=== PATIENT | female | born 2000 | race Two or more races ===

== ENCOUNTER 2022-11-20 00:34 | Inpatient (IN) | payer OTHER ==
[~2022-11-20] VITALS: Ht 152.4 cm; Wt 77.2 kg
[2022-11-20 01:25] LABS: Basophils # (auto) 0 10 ^3/uL (0-0.2); Basophils % (auto) 0.4 % (0.0-2.0); Eosinophils # (auto) 0 10 ^3/uL (0-0.8)
[2022-11-20 01:27] LABS: Eosinophils % (auto) 0.2 % (0.0-7.0); Hematocrit 40.8 % (36.0-46.0); Hemoglobin 13.7 g/dL (12.2-16.2); Lymphocytes # (auto) 1.7 10 ^3/uL (0.4-5.4); Lymphocytes % (auto) 16.5 % (10.0-50.0); Mean Corpuscular Hemoglobin 27.7 pg (28.0-32.0); Mean Corpuscular Hgb Conc. 33.6 g/dL (32.0-36.0); Mean Corpuscular Volume 82.6 fL (80.0-100.0); Monocytes # (auto) 0.5 10 ^3/uL (0-1.3); Monocytes % (auto) 5.4 % (0.0-12.0); Neutrophils # (auto) 7.8 10 ^3/uL (1.6-8.6); Neutrophils % (auto) 77.5 % (37.0-80.0); Red Blood Cells 4.94 10^6/uL (4.0-5.20); Red Cell Distribution Width 15.1 % (11.8-14.3); White Blood Cell 10.1 10^3/uL (4.4-10.8)
[2022-11-20 01:43] VITALS: PULSE 132; RESP 19; O2SAT 96
[2022-11-20 01:44] LABS: Alanine Aminotransferase 69 U/L (7-40); Albumin 5.3 g/dL (3.2-4.8); Alkaline Phosphatase 117 U/L (46-116); Anion Gap 14.9 (5-15); Aspartate Aminotransferase 28 U/L (13-40); BUN/Creatinine Ratio 18.1 (10.0-20.0); Bilirubin, Total 0.5 mg/dL (0.2-1.0); Blood Urea Nitrogen 15 mg/dL (9-23); Calcium 9.9 mg/dL (8.7-10.4); Carbon Dioxide 17.1 mmol/L (20-30); Chloride 105 mmol/L (98-107); Glucose 77 mg/dL (74-106); Potassium 3.9 mmol/L (3.5-5.1); Sodium 137 mmol/L (136-145); Total Protein 9.2 g/dL (5.7-8.2)
[2022-11-20] MEDS ORDERED: ONDANSETRON HCL 4 MG/2 ML VIAL IV ONE ×2 (02:00→08:15)
[2022-11-20] MEDS ORDERED: ACETAMINOPHEN 500 MG TAB PO ONE (02:00)
[2022-11-20] MEDS ORDERED: SODIUM CHLORIDE 0.9% 1,000 ML IV ONE (02:15)
[2022-11-20 04:13] LABS: Urine Bacteria NONE SEEN /hpf (None Seen); Urine Blood 1+ /uL (Negative); Urine Clarity HAZY (Clear); Urine Color Yellow (Yellow); Urine Mucus FEW (None Seen); Urine Protein, UAD 1+ (Negative); Urine Specific Gravity 1.029 (1.001-1.035); Urine Urobilinogen Normal (Negative); Urine WBC 28 /hpf (0 - 5); Urine pH 5.5 (5.0-8.0)
[2022-11-20] MEDS ORDERED: MORPHINE SULFATE INJ 2 MG/ml SYRG IV ONE (08:15)
[2022-11-20 08:18] VITALS: PULSE 82; RESP 20; O2SAT 96
[2022-11-20] MEDS ORDERED: diphenhdrAMINE HCL 50 MG/1 ML VL IV ONE (09:30)
[2022-11-20] MEDS ORDERED: DOCUSATE SOD 100 MG CAP PO PRN (09:45)
[2022-11-20] MEDS ORDERED: ONDANSETRON HCL 4 MG/2 ML VIAL IV PRN (09:45)
[2022-11-20 09:52] LABS: INR 1.09 (0.9-1.15); Partial Thromboplastin Time 33.1 SEC (24.5-34.5); Prothrombin Time 11.4 sec (9.3-11.8)
[2022-11-20] MEDS ORDERED: HYDROmorphone HCL 2 MG/ML VL/or syr IV PRN (10:00)
[2022-11-20] MEDS: ASPirin 81 mg TAB PO SCH (10:12)
[2022-11-20] MEDS: SODIUM CHLORIDE 0.9% 1,000 ML IV SCH ×2 (10:12→18:05)
[2022-11-20] MEDS: METOPROLOL TARTRATE 25 MG TAB PO SCH ×2 (10:12→22:00)
[2022-11-20 10:26] LABS: Phosphorus 3.3 mg/dL (2.4-5.1)
[2022-11-20 20:18] VITALS: PULSE 89; RESP 14; O2SAT 97
[2022-11-20] MEDS: MECLIZINE HCL 25 MG TAB PO PRN (23:30)
[2022-11-21] MEDS: SODIUM CHLORIDE 0.9% 1,000 ML IV SCH ×4 (03:22→21:29)
[2022-11-21 07:06] LABS: Free Thyroxine Index 2.9 (1.2-4.9); Thyroxine (T4) 10.3 ug/dL (4.5-12.0)
[2022-11-21 07:32] LABS: Basophils # (auto) 0 10 ^3/uL (0-0.2); Basophils % (auto) 0.7 % (0.0-2.0); Eosinophils # (auto) 0.4 10 ^3/uL (0-0.8); Eosinophils % (auto) 5.9 % (0.0-7.0); Hematocrit 33.7 % (36.0-46.0); Hemoglobin 11.3 g/dL (12.2-16.2); Lymphocytes # (auto) 1.9 10 ^3/uL (0.4-5.4); Lymphocytes % (auto) 29.5 % (10.0-50.0); Mean Corpuscular Hemoglobin 27.8 pg (28.0-32.0); Mean Corpuscular Hgb Conc. 33.4 g/dL (32.0-36.0); Mean Corpuscular Volume 83.3 fL (80.0-100.0); Monocytes # (auto) 0.5 10 ^3/uL (0-1.3); Monocytes % (auto) 8.4 % (0.0-12.0); Neutrophils # (auto) 3.6 10 ^3/uL (1.6-8.6); Neutrophils % (auto) 55.5 % (37.0-80.0); Nucleated Red Blood Cells % 0.3 %; Red Blood Cells 4.05 10^6/uL (4.0-5.20); Red Cell Distribution Width 15.3 % (11.8-14.3); White Blood Cell 6.5 10^3/uL (4.4-10.8)
[2022-11-21 07:40] VITALS: RESP 15; O2SAT 97
[2022-11-21 08:05] LABS: Alanine Aminotransferase 42 U/L (7-40); Albumin 4.1 g/dL (3.2-4.8); Alkaline Phosphatase 89 U/L (46-116); Anion Gap 7.9 (5-15); Aspartate Aminotransferase 16 U/L (13-40); BUN/Creatinine Ratio 9.8 (10.0-20.0); Blood Urea Nitrogen 8 mg/dL (9-23); Calcium 8.7 mg/dL (8.5-10.1); Carbon Dioxide 23.1 mmol/L (20-30); Chloride 107 mmol/L (98-107); Glucose 91 mg/dL (74-106); Sodium 138 mmol/L (136-145)
[2022-11-21 08:06] LABS: Bilirubin, Total 0.3 mg/dL (0.2-1.0); Total Protein 7.1 g/dL (5.7-8.2)
[2022-11-21] MEDS: METOPROLOL TARTRATE 25 MG TAB PO SCH ×2 (09:30→21:19)
[2022-11-21] MEDS: MECLIZINE HCL 25 MG TAB PO PRN (09:34)
[2022-11-21] MEDS: ASPirin 81 mg TAB PO SCH (09:36)
[2022-11-21] MEDS ORDERED: cefTRIAXone 1GM/50ML D5W 50 ML IV ONE (12:45)
[2022-11-21 17:30] VITALS: BP 102/77; PULSE 75; RESP 16; TEMP 97.8; O2SAT 99
[2022-11-21 19:00] VITALS: BP 102/77; PULSE 75; RESP 16; TEMP 97.8
[2022-11-21 19:14] VITALS: PULSE 107; RESP 18; O2SAT 100
[2022-11-21] MEDS ORDERED: METO25TA5 PO (19:34)
[2022-11-21 20:00] VITALS: BP 105/66; PULSE 77; PULSE 81; RESP 16; TEMP 98; O2SAT 96
[2022-11-21 22:00] VITALS: BP_SYST 105; BP_SYST 110; BP_SYST 113; BP_DIAS 66; BP_DIAS 71; PULSE 100; PULSE 81; PULSE 87; RESP 16; TEMP 98; O2SAT 96
[2022-11-22 05:00] VITALS: BP_SYST 107; BP_SYST 110; BP_SYST 113; BP_DIAS 62; BP_DIAS 70; BP_DIAS 71; PULSE 84; PULSE 93; PULSE 98; RESP 70; TEMP 98; O2SAT 98
[2022-11-22] MEDS: SODIUM CHLORIDE 0.9% 1,000 ML IV SCH (05:53)
[2022-11-22] MEDS: MECLIZINE HCL 25 MG TAB PO PRN (06:07)
[2022-11-22 07:54] VITALS: PULSE 63
[2022-11-22 08:09] VITALS: BP 90/56; PULSE 72; RESP 17; TEMP 98.2; O2SAT 98
[2022-11-22 08:50] VITALS: BP 90/56; PULSE 72; RESP 17; TEMP 98.2; O2SAT 98
[2022-11-22] MEDS ORDERED: cefTRIAXone 1GM/50ML D5W 50 ML IV SCH (09:00)
[2022-11-22] MEDS: METOPROLOL TARTRATE 25 MG TAB PO SCH (10:23)
[2022-11-22] MEDS: ASPirin 81 mg TAB PO SCH (10:23)
[2022-11-22] MEDS ORDERED: METO25TA93 PO (11:43)
[2022-11-22] MEDS ORDERED: CIPR-173 PO (11:43)
[2022-11-22] MEDS ORDERED: MECL25CH85 PO (11:43)
[2022-11-22 12:28] VITALS: BP 97/54; PULSE 69; RESP 16; TEMP 98.7; O2SAT 100
[2022-11-22 12:54] VITALS: BP 97/54; PULSE 69; RESP 16; TEMP 98.7; O2SAT 100
== END 2022-11-22 17:22 | disposition home or self-care (01) | DRG 92 ==
LOC: EDBD 00:34 → ER 00:34 → TELE 09:44 → TELE-WESTW 11-21 17:21
PROVIDERS: ADMIT Nurse Practitioner Family; ATTEND Family Medicine
DX: G90.A Postural orthostatic tachycardia syndrome [POTS] (principal); N39.0 Urinary tract infection, site not specified; D75.839 Thrombocytosis, unspecified; E86.0 Dehydration; R82.4 Acetonuria; F41.9 Anxiety disorder, unspecified; F12.10 Cannabis abuse, uncomplicated; E66.9 Obesity, unspecified; Z68.33 Body mass index [BMI] 33.0-33.9, adult
CPT/HCPCS: 36415; 70450; 71045; 80053; 81001; 81025; 82607; 82962; 83735; 84100; 84443; 84484; 84702; 85025; 85610; 85730; 93306; 96361; 96374; G0378; J0696; J2405

== ENCOUNTER → 2024-03-06 | Outpatient (CLI) | payer BC ==
[~2024-03-06] MED LIST: CIPR-173 PO; MECL25CH85 PO; METO25TA5 PO; METO25TA93 PO
[2024-03-06 13:23] LABS: Urine Bacteria None Seen /hpf (None Seen)
[2024-03-06 13:28] LABS: Basophils # (auto) 0.1 10 ^3/uL (0-0.2); Eosinophils # (auto) 0 10 ^3/uL (0-0.8); Monocytes # (auto) 0.3 10 ^3/uL (0-1.3); Neutrophils # (auto) 2.6 10 ^3/uL (1.6-8.6)
[2024-03-06 13:30] LABS: Basophils % (auto) 1.9 % (0.0-2.0); Eosinophils % (auto) 0.7 % (0.0-7.0); Hematocrit 38.8 % (36.0-46.0); Lymphocytes # (auto) 1.2 10 ^3/uL (0.4-5.4); Lymphocytes % (auto) 28.4 % (10.0-50.0); Mean Corpuscular Hemoglobin 26.7 pg (28.0-32.0); Mean Corpuscular Hgb Conc. 33.6 g/dL (32.0-36.0); Mean Corpuscular Volume 79.3 fL (80.0-100.0); Monocytes % (auto) 7.6 % (0.0-12.0); Neutrophils % (auto) 61.4 % (37.0-80.0); Platelet Count (auto) 326 10^3/uL (140-450); Red Blood Cells 4.89 10^6/uL (4.0-5.20); Red Cell Distribution Width 16.7 % (11.8-14.3); White Blood Cell 4.2 10^3/uL (4.4-10.8)
[2024-03-06 13:53] LABS: Urine Blood TRACE /uL (Negative); Urine Clarity Clear (Clear); Urine Color Colorless (Yellow); Urine Protein, UAD Negative (Negative); Urine Specific Gravity 1.009 (1.001-1.035); Urine Urobilinogen Normal (Negative); Urine WBC 2 /hpf (0 - 5); Urine pH 5.5 (5.0-9.0)
[2024-03-06 14:04] LABS: Alkaline Phosphatase 66 U/L (46-116); Amylase 50 U/L (30-118); Anion Gap 12 (5-15); Aspartate Aminotransferase 32 U/L (13-40); Bilirubin, Total 0.5 mg/dL (0.2-1.0); Calcium 10.1 mg/dL (8.7-10.4); Carbon Dioxide 24 mmol/L (20-31); Chloride 103 mmol/L (98-107); Glucose 86 mg/dL (74-106); Lipase 25 U/L (12-53); Sodium 139 mmol/L (136-145); Total Protein 7.9 g/dL (5.7-8.2)
[2024-03-06 14:19] LABS: Alanine Aminotransferase 46 U/L (7-40); Albumin 4.9 g/dL (3.2-4.8); BUN/Creatinine Ratio 7.9 (10.0-20.0); Blood Urea Nitrogen < 5 mg/dL (9-23); Potassium 3.2 mmol/L (3.5-5.1)
== END | disposition home or self-care (01) ==
LOC: LAB 12:54
PROVIDERS: ATTEND Nurse Practitioner Family
DX: Z00.01 Encounter for general adult medical examination with abnormal findings (principal); R11.2 Nausea with vomiting, unspecified; G90.A Postural orthostatic tachycardia syndrome [POTS]
CPT/HCPCS: 36415; 80053; 81001; 82150; 83690; 84443; 85025

== ENCOUNTER 2024-03-31 11:33 | Emergency (ER) | payer BC, MEDICAID ==
[~2024-03-31] VITALS: Ht 152.4 cm; Wt 55.2 kg
--- NOTE | 2024-03-31 12:21 | ED.PDOC ---
HPI Comments HPI: Poor Historian. 23-year-old female with a history of POTS syndrome in 2020 currently on promethazine presents to emergency department for worsening of her symptoms in the last few months. She describes having worsening tachycardia and dizziness. Her heart rate goes up to 170 with minimal exertion. She feels very weak and dizzy and requires assistance to ambulate. She smokes marijuana occasionally. Denies any or vaginal bleeding or any other use of drugs. Patient in triage mentioned that she is here for abdominal pain but when further evaluated she states that she feels that when her heart is beating fast and strong that she feels that pulse in her abdomen and that is what she is describing as abdominal complaint but no actual pain. VITALS: T:98.0 HR:160 RR:18 O2:99 BP:142/103 SOCIAL HX: DENIES TOBACCO USAGE, ETOH CONSUMPTION, SMOKES MARIJUANA SHX: DENIES ALL PMHX: DENIES ALL ALLERGIES: NKA RX: PROMETHAZOE REVIEW OF SYSTEMS: CONSTITUTIONAL: Denies acute: fever, diaphoresis, chills, HEAD: Denies acute: headache, photophobia Eyes: Denies acute: Double vision, vision loss, eye pain, eye discharge. EARS: Denies acute: tinnitus, hearing loss, ear discharge, ear pain, THROAT: Denies acute: sore throat, swelling, difficulty swallowing , pain with swallowing, change in voice. NECK: Denies acute: neck pain, neck swelling, stiff neck. HEART: Denies acute : chest pain, LUNGS: Denies acute: SOB, wheezing, cough, hemoptysis ABDOMEN: Denies acute: abdominal pain, Nausea, Vomiting, diarrhea, melena , hematemesis, hematochezia SKIN: Denies acute: rash, redness, lesions, itchiness. EXTREMITIES: Denies acute: calf pain, numbness, tingling, weakness, denies pain in extremity. Denies acute: Low back pain. Neuro: Denies acute: focal neurological deficit, motor or sensory focal neurological deficit, tremors, seizure like activity, confusion, change in mental status, loss of bowel or bladder function, cauda equina like symptoms. : Denies acute: dysuria, hematuria, flank pain, increase in urinary frequency. PSYCH: Denies acute: hallucination, suicidal ideation, homicidal ideation. FEMALE: Denies acute: abnormal vaginal bleeding, foul odor, unusual discharge. PHYSICAL EXAM: General: no acute distress, awake and alert. Head: normocephalic, atraumatic. Neck: supple, trachea is midline, no swelling. Throat: Normal phonation. Eyes:, no erythema, no purulent discharge, no proptosis, no icterus. Heart: regular tachycardic, no significant murmur appreciated. Lungs: no apparent respiratory distress, Able to speak in full sentences. No wheezing, no rhonchi, no crackles. No stridors Clear to auscultation bilaterally. Abdomen: non tender to palpation, non distended, soft, no guarding, no rebound, + bowel sounds. Neuro: Awake, Alert, oriented to name, self, situation, follows commands GCS=15. Speech is normal. Skin: no petechia, no purpura, no cyanosis, slightly-pale, not jaundice. Lower extremities: --no - Pitting edema no deformity, no focal swelling, no calf TTP. Makes eye contact. moves all four extremities. Face: no apparent facial droop. Ambulating in the ED with a cane. No nuchal rigidity, Kernig's sign, Brudzinski's sign, no meningeal signs. Chief Complaint: Abdominal Pain Time Seen by MD: 12:00 Reviewed Notes: Nurses Notes, Medications, Allergies Allergies: Coded Allergies: NO KNOWN ALLERGIES (Unverified , 11/20/22) Home Meds Active Scripts Meclizine HCl (Antivert) 25 Mg Chw, 25 MG PO TID PRN, #20 TAB.CHEW Prov:SOURAV GALARZA MD 11/22/22 Ciprofloxacin Hcl (Cipro) 500 Mg Tab, 1 TAB PO BID, #20 TAB Prov:SOURAV GALARZA MD 11/22/22 Metoprolol Succinate (Metoprolol Succinate Er) 25 Mg Tab, 1 TAB PO DAILY, #30 TAB 5 Refills Prov:SOURAV GALARZA MD 11/22/22 Reported Medications Promethazine Hcl (Promethazine Hcl) 25 Mg Tab, TAB PO 03/31/24 Metoprolol Tartrate (Metoprolol Tartrate) 25 Mg Tab, 1 TAB PO BID for LOWER HEART RATE, #180 TAB 1 Refill 11/21/22 Information Source: Patient Mode of Arrival: Ambulatory Severity: Moderate Timing: Months Duration: Since onset Prehospital treatment: None PE Risk Factors: None History of: None Associated Signs and Symptoms: None Was a procedure done? Was a procedure done?: No X-Ray, Labs, Meds, VS Vital Signs Date Time Temp Pulse Resp B/P (MAP) Pulse Ox O2 Delivery O2 Flow Rate FiO2 03/31/24 13:39 98.0 70 18 108/85 (93) 99 98.0 03/31/24 13:39 60 18 99 Room Air 03/31/24 11:55 98.0 130 18 142/103 (116) 99 03/31/24 11:50 139 Lab Test 03/31/24 17:00 03/31/24 16:48 03/31/24 13:02 03/31/24 11:55 Range/Units Urine Color Pending Urine Clarity Pending Urine pH Pending Urine Specific [place]ette Pending Urine Protein Pending Urine Ketones Pending Urine Blood Pending Urine Nitrite Pending Urine Bilirubin Pending Urine Urobilinogen Pending Urine Leukocyte Esterase Pending Urine RBC Pending Urine WBC Pending Urine Squamous Epithelial Cells Pending Urine Bacteria Pending Urine Glucose Pending Urine Test Pending Urine Opiates Screen Pending Urine Fentanyl Screen Pending Urine Barbiturates Screen Pending Urine Phencyclidine Screen Pending Urine Amphetamines Screen Pending Urine Benzodiazepines Screen Pending Urine Cocaine Screen Pending Urine Cannabinoids Screen Pending Hemoglobin 14.2 15.3 12.2-16.2 g/dL Hematocrit 42.1 46.2 H 36.0-46.0 % Lactic Acid Level 1.1 0.4-2.0 mmol/L Troponin I High Sensitivity < 3 L < 3 L </=34 ng/L Beta HCG, Quantitative 0.4 L 1.5-4.2 mIU/mL White Blood Count 5.8 4.4-10.8 10^3/uL Red Blood Count 5.62 H 4.0-5.20 10^6/uL Mean Corpuscular Volume 82.3 80.0-100.0 fL Mean Corpuscular Hemoglobin 27.2 L 28.0-32.0 pg Mean Corpuscular Hemoglobin Concent 33.1 32.0-36.0 g/dL Red Cell Distribution Width 16.3 H 11.8-14.3 % Platelet Count 416 140-450 10^3/uL Mean Platelet Volume 7.8 6.9-10.8 fL Neutrophils (%) (Auto) 66.1 37.0-80.0 % Lymphocytes (%) (Auto) 25.6 10.0-50.0 % Monocytes (%) (Auto) 7.2 0.0-12.0 % Eosinophils (%) (Auto) 0.5 0.0-7.0 % Basophils (%) (Auto) 0.6 0.0-2.0 % Neutrophils # (Auto) 3.8 1.6-8.6 10 ^3/uL Lymphocytes # (Auto) 1.5 0.4-5.4 10 ^3/uL Monocytes # (Auto) 0.4 0-1.3 10 ^3/uL Eosinophils # (Auto) 0 0-0.8 10 ^3/uL Basophils # (Auto) 0 0-0.2 10 ^3/uL Nucleated Red Blood Cells 0.3 % D-Dimer, Quantitative 0.27 0.0-0.49 mg/L FEU Sodium Level 133 L 136-145 mmol/L Potassium Level 4.3 3.5-5.1 mmol/L Chloride Level 104 98-107 mmol/L Carbon Dioxide Level 11 L 20-31 mmol/L Anion Gap 18 H 5-15 Blood Urea Nitrogen 17 9-23 mg/dL Creatinine 1.00 0.550-1.02 mg/dL Glomerular Filtration Rate Calc 82 >90 mL/min BUN/Creatinine Ratio 17.0 10.0-20.0 Serum Glucose 94 74-106 mg/dL Calcium Level 11.1 H 8.7-10.4 mg/dL Magnesium Level 1.9 1.6-2.6 mg/dL Total Bilirubin 0.8 0.2-1.0 mg/dL Aspartate Amino Transferase (AST) 25 13-40 U/L Alanine Aminotransferase (ALT) 35 7-40 U/L Alkaline Phosphatase 84 46-116 U/L B-Type Natriuretic Peptide 3.64 0-100 pg/mL Total Protein 8.9 H 5.7-8.2 g/dL Albumin 5.6 H 3.2-4.8 g/dL Lipase 28 12-53 U/L Thyroid Stimulating Hormone (TSH) 4.29 0.55-4.78 uIU/mL Current Medications Medications (Trade) Dose Ordered Sig/Adrianna Route Start Time Stop Time Status Last Admin Sodium Chloride 1,000 ml @ 1,000 mls/hr Q1H ONCE IV 03/31/24 12:15 03/31/24 13:14 DC 03/31/24 13:46 Ondansetron HCl (Zofran) 4 mg ONCE ONCE IV 03/31/24 14:00 03/31/24 14:01 DC 03/31/24 13:56 Pantoprazole Sodium (Protonix) 40 mg ONCE ONCE IV 03/31/24 16:45 03/31/24 16:52 DC 03/31/24 17:07 [place] [address] Ph: [phone] DIAGNOSTIC IMAGING Diagnostic Imaging Report : [id number] Signed PATIENT: VICENTE SANDERSON ACCT: [id number] UNIT: [id number] : 2000 LOC: ER ROOM / BED: / AGE / SEX: 23 / F ADM STATUS: [facility] ER SERVICE 1212 ORDERING PHYSICIAN: WENDI VEGAS DO PROCEDURE(s): CXRP - CHEST PORTABLE REASON: weak/dizzy/tachy ORDER NUMBER(s): [id number], ACCESSION NUMBER(s): [id number] CHEST RADIOGRAPH Indication: weak/dizzy/tachy Technique: Single frontal view of the chest was obtained Comparison: XY CHEST PORTABLE on DOS: 11/20/22 FINDINGS: Lines and Tubes: None Lungs: No focal consolidation. Pleura: No effusion. No pneumothorax. Cardiomediastinal contours: Unremarkable Bones: No acute osseous abnormality. IMPRESSION: 1. No acute cardiopulmonary disease. ATED BY: LIZZIE WELLS MD DICTATED DATE/TIME: 03/31/24 155 SIGNED BY: LIZZIE WELLS MD SIGNED DATE/TIME: 03/31/24 155 CC: [address] [address] Ph: [phone] DIAGNOSTIC IMAGING Diagnostic Imaging Report : [id number] Signed PATIENT: VICENTE SANDERSON ACCT: [id number] UNIT: [id number] : 2000 LOC: ER ROOM / BED: / AGE / SEX: 23 / F ADM STATUS: REG ER SERVICE 1212 ORDERING PHYSICIAN: WENDI VEGAS DO PROCEDURE(s): ABPL - CT AB PEL WO CON-NO ORAL OR IV REASON: weak/dizzy/tachy ORDER NUMBER(s): [id number], ACCESSION NUMBER(s): [id number] Exam: CT CT AB PEL WO CON-NO ORAL OR IV History: weak/dizzy/tachy Comparison Study: None available TECHNIQUE: Multidetector CT of the abdomen and pelvis was performed from lung bases to pubic symphysis. Imaging was performed without IV contrast. Axial, coronal, and sagittal multiplanar reformats were obtained from the axial data set by the technologist. RADIATION DOSE: DLP 238.68 mGy.cm; CTDI vol 5.37 mGy. Findings: Lungs: The lung bases are clear. Heart: The visualized heart is unremarkable. No cardiomegaly or pericardial effusion. Liver: Unremarkable. Gallbladder: Unremarkable. Spleen: Unremarkable Pancreas: Unremarkable Adrenals: Unremarkable Kidneys: Unremarkable GI tract: Layering hyperdensity in the stomach. : Free fluid in the endometrium. Vasculature: Unremarkable Lymphadenopathy: Absent Peritoneum: No ascites Musculoskeletal: Unremarkable Soft tissues: Unremarkable Impression: 1. No acute abdominopelvic abnormalities. 2. Layering hyperdensity in the stomach, nonspecific. May reflect recently ing ested medication but cannot exclude a hemorrhage. Recommend direct visualization. 3. Free fluid in the endometrium. Correlate with phase of menstrual cycle. ATED BY: JESSICA ATKINS DO DICTATED DATE/TIME: 03/31/24 1559 SIGNED BY: JESSICA ATKINS DO SIGNED DATE/TIME: 03/31/24 1559 CC: Time of 1ST Reevaluation: 12:30 Reevaluation 1ST: Unchanged Time of 2ND Reevaluation: 17:41 (Patient has already been admitted by the medicine team. Then later they changed insurance status to [facility]. I spoke with the [facility] team.The case was discussed with the admitting team (HPI, physical exam, labs and diagnostic tests that were available at the time of disposition, ED course, treatment plan) on the phone. They agreed to transfer the patient to their facility in [place] for further evaluation and treatment. Her heart rate has improved. Authorization number is [id number] Dr. Amaro) Reevaluation 2ND: Improved Patient Education/Counseling: Diagnosis, Treatment Family Education/Counseling: No Family Present Comments 23-year-old female with a history of POTS syndrome in 2020 currently on promethazine presents to emergency department for worsening of her symptoms in the last few months. Patient was found with the above mentioned diagnosis. the following medications were ordered: NS 1L, ZOFRAN, HEPLOCK IV the following tests were ordered: EKG, CXR, CT ABD PEL, LABS Patient ED course and VS have been stabilized. Patient has been reassessed in the ED and remained in a stable condition. Pertinent incidental findings were discussed with the patient and/or family. Patient/family voices understanding and is agreeable with plan. Patient has been observed in the ED adequate length of time to insure improvement/stability. Escalation of care considered: Consideration of escalation to observation or admission Patient was ADMITTED to the medicine team for further evaluation and treatment of their presentation. Patient was discharged. All the reports of any imaging studies that were ordered by myself were reviewed by myself. Departure 1 Departure Time of Disposition: 14:15 Impression: Primary Impression: Tachycardia Additional Impressions: Dizziness Generalized weakness Disposition: ADMITTED INPATIENT Admit to: Tele Condition: Guarded Additional Instructions: [place] [address] Ph: [phone] DIAGNOSTIC IMAGING Diagnostic Imaging Report : [id number] Signed PATIENT: VICENTE SANDERSON ACCT: [id number] UNIT: [id number] : 2000 LOC: ER ROOM / BED: / AGE / SEX: 23 / F ADM STATUS: REG ER SERVICE 1212 ORDERING PHYSICIAN: WENDI VEGAS DO PROCEDURE(s): CXRP - CHEST PORTABLE REASON: weak/dizzy/tachy ORDER NUMBER(s): [id number], ACCESSION NUMBER(s): [id number] CHEST RADIOGRAPH Indication: weak/dizzy/tachy Technique: Single frontal view of the chest was obtained Comparison: XY CHEST PORTABLE on DOS: 11/20/22 FINDINGS: Lines and Tubes: None Lungs: No focal consolidation. Pleura: No effusion. No pneumothorax. Cardiomediastinal contours: Unremarkable Bones: No acute osseous abnormality. IMPRESSION: 1. No acute cardiopulmonary disease. ATED BY: LIZZIE WELLS MD DICTATED DATE/TIME: 03/31/241555 SIGNED BY: LIZZIE WELLS MD SIGNED DATE/TIME: 03/31/24 1556 CC: [place] [address] Ph: [phone] DIAGNOSTIC IMAGING Diagnostic Imaging Report : [id number] Signed PATIENT: VICENTE SANDERSON ACCT: [id number] UNIT: [id number] : 2000 LOC: ER ROOM / BED: / AGE / SEX: 23 / F ADM STATUS: REG ER SERVICE 1212 ORDERING PHYSICIAN: WENDI VEGAS DO PROCEDURE(s): ABPL - CT AB PEL WO CON-NO ORAL OR IV REASON: weak/dizzy/tachy ORDER NUMBER(s): [id number], ACCESSION NUMBER(s): [id number] Exam: CT CT AB PEL WO CON-NO ORAL OR IV History: weak/dizzy/tachy Comparison Study: None available TECHNIQUE: Multidetector CT of the abdomen and pelvis was performed from lung bases to pubic symphysis. Imaging was performed without IV contrast. Axial, coronal, and sagittal multiplanar reformats were obtained from the axial data set by the technologist. RADIATION DOSE: DLP 238.68 mGy.cm; CTDI vol 5.37 mGy. Findings: Lungs: The lung bases are clear. Heart: The visualized heart is unremarkable. No cardiomegaly or pericardial effusion. Liver: Unremarkable. Gallbladder: Unremarkable. Spleen: Unremarkable Pancreas: Unremarkable Adrenals: Unremarkable Kidneys: Unremarkable GI tract: Layering hyperdensity in the stomach. : Free fluid in the endometrium. Vasculature: Unremarkable Lymphadenopathy: Absent Peritoneum: No ascites Musculoskeletal: Unremarkable Soft tissues: Unremarkable Impression: 1. No acute abdominopelvic abnormalities. 2. Layering hyperdensity in the stomach, nonspecific. May reflect recently ingested medication but cannot exclude a hemorrhage. Recommend direct visualization. 3. Free fluid in the endometrium. Correlate with phase of menstrual cycle. ATED BY: JESSICA ATKINS DO DICTATED DATE/TIME: 03/31/24 1559 SIGNED BY: JESSICA ATKINS DO SIGNED DATE/TIME: 03/31/24 1559 CC: Discharged With: Self Critical Care Note Critical Care Time?: No Stability Stability form required: No Heart Score Heart Score: Heart Score Response (Comments) Value Age >65 2 Total 2 I personally scribed for WENDI VEGAS DO ([email or web address]) on 03/31/24 at 12:21. Electronically submitted by Elba Oneil ([email or web address]). I personally scribed for WENDI VEGAS DO ([email or web address]) on 03/31/24 at 16:06. Electronically submitted by Elba Oneil ([email or web address]). I personally scribed for WENDI VEGAS DO ([email or web address]) on 03/31/24 at 16:10. Electronically submitted by Elba Oneil ([email or web address]). WENDI VEGAS DO Mar 31, 2024 12:21
[2024-03-31 12:31] LABS: Basophils # (auto) 0 10 ^3/uL (0-0.2); Basophils % (auto) 0.6 % (0.0-2.0); Eosinophils # (auto) 0 10 ^3/uL (0-0.8); Eosinophils % (auto) 0.5 % (0.0-7.0); Hematocrit 46.2 % (36.0-46.0); Hemoglobin 15.3 g/dL (12.2-16.2); Lymphocytes # (auto) 1.5 10 ^3/uL (0.4-5.4); Lymphocytes % (auto) 25.6 % (10.0-50.0); Mean Corpuscular Hemoglobin 27.2 pg (28.0-32.0); Mean Corpuscular Hgb Conc. 33.1 g/dL (32.0-36.0); Mean Corpuscular Volume 82.3 fL (80.0-100.0); Monocytes # (auto) 0.4 10 ^3/uL (0-1.3); Monocytes % (auto) 7.2 % (0.0-12.0); Neutrophils # (auto) 3.8 10 ^3/uL (1.6-8.6); Neutrophils % (auto) 66.1 % (37.0-80.0); Nucleated Red Blood Cells % 0.3 %; Platelet Count (auto) 416 10^3/uL (140-450); Red Blood Cells 5.62 10^6/uL (4.0-5.20); Red Cell Distribution Width 16.3 % (11.8-14.3); White Blood Cell 5.8 10^3/uL (4.4-10.8)
[2024-03-31 12:39] LABS: Alanine Aminotransferase 35 U/L (7-40); Alkaline Phosphatase 84 U/L (46-116); Anion Gap 18 (5-15); Aspartate Aminotransferase 25 U/L (13-40); Bilirubin, Total 0.8 mg/dL (0.2-1.0); Chloride 104 mmol/L (98-107); Glucose 94 mg/dL (74-106); Lipase 28 U/L (12-53); Magnesium 1.9 mg/dL (1.6-2.6); Potassium 4.3 mmol/L (3.5-5.1)
--- NOTE | 2024-03-31 12:44 | ECG ---
[facility] Test Date: 2024-03-31 Test Time: 11:50:24 Pat Name: VICENTE SANDERSON Department: ER Room: Gender: F [employer] Assistant: HORACIO : 2000 Requested By: WENDI VEGAS Order Number: [id number] Reading MD: Measurements Intervals [place] Rate: 139 P: 68 [place]: 127 QRS: 53 QRSD: 83 T: 54 QT: 288 QTc: 438 Interpretive Statements Sinus tachycardia Multiple ventricular premature complexes LAE, consider biatrial enlargement Low voltage, precordial leads Artifact in lead(s) II,aVL and baseline wander in lead(s) V4 Please click the below link to view image of tracing.
[2024-03-31 13:35] LABS: Albumin 5.6 g/dL (3.2-4.8); Calcium 11.1 mg/dL (8.7-10.4); Carbon Dioxide 11 mmol/L (20-31); Sodium 133 mmol/L (136-145); Total Protein 8.9 g/dL (5.7-8.2)
[2024-03-31] MEDS: SODIUM CHLORIDE 0.9% 1,000 ML IV ONE (13:46)
[2024-03-31 13:48] LABS: Blood Urea Nitrogen 17 mg/dL (9-23)
[2024-03-31] MEDS: ONDANSETRON HCL 4 MG/2 ML VIAL IV ONE (13:56)
--- NOTE | 2024-03-31 15:58 | DVH ---
CHEST RADIOGRAPH Indication: weak/dizzy/tachy Technique: Single frontal view of the chest was obtained Comparison: XY CHEST PORTABLE on DOS: 11/20/22 FINDINGS: Lines and Tubes: None Lungs: No focal consolidation. Pleura: No effusion. No pneumothorax. Cardiomediastinal contours: Unremarkable Bones: No acute osseous abnormality. IMPRESSION: 1. No acute cardiopulmonary disease.
--- NOTE | 2024-03-31 16:02 | DVH ---
Exam: CT CT AB PEL WO CON-NO ORAL OR IV History: weak/dizzy/tachy Comparison Study: None available TECHNIQUE: Multidetector CT of the abdomen and pelvis was performed from lung bases to pubic symphysi s. Imaging was performed without IV contrast. Axial, coronal, and sagittal multiplanar reformats were obtained from the axial data set by the technologist. RADIATION DOSE: DLP 238.68 mGy.cm; CTDI vol 5.37 mGy. Findings: Lungs: The lung bases are clear. Heart: The visualized heart is unremarkable. No cardiomegaly or pericardial effusion. Liver: Unremarkable. Gallbladder: Unremarkable. Spleen: Unremarkable Pancreas: Unremarkable Adrenals: Unremarkable Kidneys: Unremarkable GI tract: Layering hyperdensity in the stomach. : Free fluid in the endometrium. Vasculature: Unremarkable Lymphadenopathy: Absent Peritoneum: No ascites Musculoskeletal: Unremarkable Soft tissues: Unremarkable Impression: 1. No acute abdominopelvic abnormalities. 2. Layering hyperdensity in the stomach, nonspecific. May reflect recently ingested medication but ca nnot exclude a hemorrhage. Recommend direct visualization. 3. Free fluid in the endometrium. Correlate with phase of menstrual cycle.
[2024-03-31] MEDS ORDERED: PROM25TA10 PO (16:56)
[2024-03-31] MEDS ORDERED: MORPHINE SULFATE INJ 2 MG/ml SYRG IV PRN (17:00)
[2024-03-31] MEDS ORDERED: ONDANSETRON HCL 4 MG/2 ML VIAL IV PRN (17:00)
[2024-03-31] MEDS ORDERED: HYDROcodone-ACET 5/325MG TAB PO PRN (17:00)
[2024-03-31] MEDS ORDERED: ACETAMINOPHEN 325 MG TAB PO PRN (17:00)
[2024-03-31] MEDS ORDERED: NITROGLYCERIN 0.4 MG SL TAB SL PRN (17:00)
--- NOTE | 2024-03-31 17:04 | DVHHP2 ---
History of Present Illness Reason for Visit: Nausea, vomiting, abdominal pain, tachycardic, and dizziness History of Present Illness Aime Yates is a 23-year-old female with past medical history of pots syndrome who takes promethazine who presents to the ED today for abdominal pain, nausea, vomiting, tachycardia, and dizziness x3 months. Patient is here because she said progressively over the last week it has been getting worse. Patient states with any minimal movement such as moving her extremities she gets extremely tachycardic to the 220s and her face arms and legs start to feel numb. Patient reports that she takes promethazine for the POTS syndrome and no longer takes the metoprolol. Patient states that she saw her PCP on March 09 and over the course of 6 months she lost 70 lbs. Patient denies any chest pain, back pain, recent trauma or injury, dysuria, constipation and headaches. Review of Systems Constitutional: Yes: Other (Dizziness); No: Fever, Chills, Sweats, Weakness, Malaise Eyes: No: Pain, Vision change, Conjunctivae inflammation, Eyelid inflammation, Other, Redness ENT: No: Ear pain, Ear discharge, Nose pain, Nose discharge, Nose congestion, Mouth pain, Mouth swelling, Throat pain, Throat swelling, Other Respiratory: No: Cough, Dry, Shortness of breath, SOB with excertion, Wheezing, Hemoptysis, Pleuritic Pain, Sputum, Wheezing, Other Cardiovascular: No: Chest Pain, Palpitations, Orthopnea, Paroxysmal Noc. Dy spnea, Edema, Lt Headedness, Other Gastrointestinal: Nausea, Vomiting, Abdominal Pain; No: Diarrhea, Constipation, Melena, Hematochezia, Other Genitourinary: No Dysuria, No Frequency, No Incontinence, No Hematuria, No Retention, No Other Musculoskeletal: No: other, neck pain, shoulder pain, arm pain, back pain, hand pain, leg pain, foot pain Skin: No: Rash, Lesions, Jaundice, Bruising, Other Neurological: No: Weakness, Numbness, Incoordination, Change in speech, Confusion, Seizures, Other Allergies: Coded Allergies: NO KNOWN ALLERGIES (Unverified , 11/20/22) Exam Vital Signs Vital Signs Date Time Temp Pulse Resp B/P (MAP) Pulse Ox O2 Delivery O2 Flow Rate FiO2 03/31/24 13:39 98.0 70 18 108/85 (93) 99 98.0 03/31/24 13:39 Room Air General Appearance: Alert, Oriented X3, Cooperative, No acute distress HEENT: Atraumatic, PERRLA, EOMI, Mucous membr. moist/pink Respiratory: Clear to auscultation, Normal air movement Cardiovascular: Normal S1, Normal S2, No murmurs Abdominal: Soft Extremities: No clubbing, No cyanosis, No edema, Normal pulses, No tenderness/swelling Skin: No rashes, No breakdown, No significant lesion Neuro: Normal speech, Strength at 5/5 X4 ext, Normal tone, Sensation intact Psych/Mental Status: Mental status NL, Mood NL Labs/Xrays Labs Test 03/31/24 13:02 03/31/24 11:55 Range/Units Lactic Acid Level 1.1 0.4-2.0 mmol/L Troponin I High Sensitivity < 3 L </=34 ng/L Beta HCG, Quantitative 0.4 L 1.5-4.2 mIU/mL White Blood Count 5.8 4.4-10.8 10^3/uL Red Blood Count 5.62 H 4.0-5.20 10^6/uL Hemoglobin 15.3 12.2-16.2 g/dL Hematocrit 46.2 H 36.0-46.0 % Mean Corpuscular Volume 82.3 80.0-100.0 fL Mean Corpuscular Hemoglobin 27.2 L 28.0-32.0 pg Mean Corpuscular Hemoglobin Concent 33.1 32.0-36.0 g/dL Red Cell Distribution Width 16.3 H 11.8-14.3 % Platelet Count 416 140-450 10^3/uL Mean Platelet Volume 7.8 6.9-10.8 fL Neutrophils (%) (Auto) 66.1 37.0-80.0 % Lymphocytes (%) (Auto) 25.6 10.0-50.0 % Monocytes (%) (Auto) 7.2 0.0-12.0 % Eosinophils (%) (Auto) 0.5 0.0-7.0 % Basophils (%) (Auto) 0.6 0.0-2.0 % Neutrophils # (Auto) 3.8 1.6-8.6 10 ^3/uL Lymphocytes # (Auto) 1.5 0.4-5.4 10 ^3/uL Monocytes # (Auto) 0.4 0-1.3 10 ^3/uL Eosinophils # (Auto) 0 0-0.8 10 ^3/uL Basophils # (Auto) 0 0-0.2 10 ^3/uL Nucleated Red Blood Cells 0.3 % D-Dimer, Quantitative 0.27 0.0-0.49 mg/L FEU Sodium Level 133 L 136-145 mmol/L Potassium Level 4.3 3.5-5.1 mmol/L Chloride Level 104 98-107 mmol/L Carbon Dioxide Level 11 L 20-31 mmol/L Anion Gap 18 H 5-15 Blood Urea Nitrogen 17 9-23 mg/dL Creatinine 1.00 0.550-1.02 mg/dL Glomerular Filtration Rate Calc 82 >90 mL/min BUN/Creatinine Ratio 17.0 10.0-20.0 Serum Glucose 94 74-106 mg/dL Calcium Level 11.1 H 8.7-10.4 mg/dL Magnesium Level 1.9 1.6-2.6 mg/dL Total Bilirubin 0.8 0.2-1.0 mg/dL Aspartate Amino Transferase (AST) 25 13-40 U/L Alanine Aminotransferase (ALT) 35 7-40 U/L Alkaline Phosphatase 84 46-116 U/L B-Type Natriuretic Peptide 3.64 0-100 pg/mL Total Protein 8.9 H 5.7-8.2 g/dL Albumin 5.6 H 3.2-4.8 g/dL Lipase 28 12-53 U/L Thyroid Stimulating Hormone (TSH) 4.29 0.55-4.78 uIU/mL CHEST RADIOGRAPH Indication: weak/dizzy/tachy Technique: Single frontal view of the chest was obtained Comparison: XY CHEST PORTABLE on DOS: 11/20/22 FINDINGS: Lines and Tubes: None Lungs: No focal consolidation. Pleura: No effusion. No pneumothorax. Cardiomediastinal contours: Unremarkable Bones: No acute osseous abnormality. IMPRESSION: 1. No acute cardiopulmonary disease. Exam: CT CT AB PEL WO CON-NO ORAL OR IV History: weak/dizzy/tachy Comparison Study: None available TECHNIQUE: Multidetector CT of the abdomen and pelvis was performed from lung bases to pubic symphysis. Imaging was performed without IV contrast. Axial, coronal, and sagittal multiplanar reformats were obtained from the axial data set by the technologist. RADIATION DOSE: DLP 238.68 mGy.cm; CTDI vol 5.37 mGy. Findings: Lungs: The lung bases are clear. Heart: The visualized heart is unremarkable. No cardiomegaly or pericardial effusion. Liver: Unremarkable. Gallbladder: Unremarkable. Spleen: Unremarkable Pancreas: Unremarkable Adrenals: Unremarkable Kidneys: Unremarkable GI tract: Layering hyperdensity in the stomach. : Free fluid in the endometrium. Vasculature: Unremarkable Lymphadenopathy: Absent Peritoneum: No ascites Musculoskeletal: Unremarkable Soft tissues: Unremarkable Impression: 1. No acute abdominopelvic abnormalities. 2. Layering hyperdensity in the stomach, nonspecific. May reflect recently ingested medication but cannot exclude a hemorrhage. Recommend direct visualization. 3. Free fluid in the endometrium. Correlate with phase of menstrual cycle. Assessment/Plan Assessment/Plan Assessment/Plan: Intractable abdominal pain likely due to POTS syndrome - on promethazine Hyponatremia IV fluids Zofran UA CT abdomen and pelvis HCG Troponins Chest x-ray negative TSH Mag Lipase Lactic acid UDS D-dimer negative [facility] ambulatory services representative consult Labs A.m. labs FEN/PPX Diet IVf DVT ppx not indicated patient is ambulating PUD ppx - Protonix Admit to telemetry Home medications reconciled Discussed plan of care with patient and nurse Plan discussed with: Patient My Orders Orders - CHAGO YOUNGER Procedure Category Date Status Time Admit ADMIT 03/31/24 Verified 16:54 Allergies BEATRIZ 03/31/24 Verified 16:54 Code Status CODE 03/31/24 Verified 16:54 0.9% Ns 1000 Ml PHA 03/31/24 Verified 17:00 Hydrocodone-Acet PHA 03/31/24 Verified 5/325mg Tab (Convoy 17:00 Ondansetron Hcl PHA 03/31/24 Verified (Zofran) 17:00 Complete Blood Count LAB 04/01/24 Verified 04:00 Comprehensive LAB 04/01/24 Verified Metabolic Panel 04:00 Cardiac DIET 03/31/24 Verified Diet-2gna,Lofat,Lochol Dinner Acetaminophen Tablet PHA 03/31/24 Verified (Tylenol Tablet) 17:00 Nitroglycerin PHA 03/31/24 Verified Sublingual (Ntrostat 17:00 Morphine Sulfate PHA 03/31/24 Verified Injection 17:00 Stat Ekg For Chest BEATRIZ 03/31/24 Verified Pain 16:54 Notify Of Changes [facility] 03/31/24 Verified From Base 16:54 Adjunct Communications Faculty Member For [facility] 03/31/24 Verified 24 Hours 16:54 Emergency Dysrhythmia [facility] 03/31/24 Verified Protocol 16:54 Rhythm Strips Once [facility] 03/31/24 Verified Every Shift 16:54 Oxygen By Nasal RT 03/31/24 Verified Cannula 16:54 Date of Service: Mar 31, 2024 Billing Provider: CHAGO YOUNGER Common Visit Codes: [id number] INP/OBS CARE (HIGH) CHAGO YOUNGER Mar 31, 2024 17:04
[2024-03-31] MEDS: PANTOPRAZOLE 40 MG/10 ML VIAL INJ IV ONE (17:07)
[2024-03-31 17:16] LABS: Hematocrit 42.1 % (36.0-46.0); Hemoglobin 14.2 g/dL (12.2-16.2)
[2024-03-31 17:18] LABS: Urine Bacteria None Seen /hpf (None Seen)
[2024-03-31 17:39] LABS: Opiate Scree,Urine Neg (NEGATIVE)
[2024-03-31 18:17] LABS: Amphetamine Screen, Urine Neg (NEGATIVE); Barbiturate Scree,Urine Neg (NEGATIVE); Benzodiazephine Screen, Urine Neg (NEGATIVE); Cannabinoid Screen, Urine Pos (NEGATIVE); Cocaine Screen, Urine Neg (NEGATIVE); Phencyclidine Screen, Urine Neg (NEGATIVE)
[2024-03-31 18:19] LABS: Urine Blood 3+ /uL (Negative); Urine Clarity Turbid (Clear); Urine Color Light-Yellow (Yellow); Urine Hyaline Cast FEW /lpf (0 - 2); Urine Protein, UAD 1+ (Negative); Urine Specific Gravity 1.022 (1.001-1.035); Urine Squamous Epithelial Cell FEW /hpf (<5); Urine Urobilinogen Normal (Negative); Urine WBC 26 /hpf (0 - 5); Urine pH 5.5 (5.0-9.0)
[2024-03-31] MEDS: SODIUM CHLORIDE 0.9% 1,000 ML IV SCH (20:46)
[2024-03-31 20:55] VITALS: BP 113/85; TEMP 98.4
[2024-03-31 20:57] VITALS: PULSE 110; RESP 18; O2SAT 98
[2024-04-01] MEDS ORDERED: PANTOPRAZOLE 40 MG/10 ML VIAL INJ IV SCH (10:00)
== END 2024-03-31 20:13 | disposition short-term general hospital (02) ==
LOC: ER 11:40 → UNDOADMIN 16:54 → TELE 16:54 → UNDODISIN 21:12
DX: R42 Dizziness and giddiness (principal); R00.0 Tachycardia, unspecified; R53.1 Weakness
CPT/HCPCS: 36415; 71045; 74176; 80053; 80307; 81001; 81025; 83605; 83690; 83735; 83880; 84443; 84484; 84702; 85014; 85018; 85025; 85379; 86850; 86900; 86901; 93005; 96361; 96374; 96375; 99285; J2405; J2470; J7030; G0378